=== PATIENT | male | born 1965 | race Caucasian/White ===

== ENCOUNTER 2018-01-04 09:53 | Emergency (ER) | payer BC ==
[2018-01-04 12:23] VITALS: BP 151/101
--- NOTE | 2018-01-04 12:35 | UC ---
Hip/Pelvis Pain - HPI Summary HPI Summary: 2 DAYS AGO PATIENT WAS PERFORMING BACK SQUATS WHEN HE FELT SOME LEFT HIP AND GROIN DISCOMFORT. IT WAS MILD SO HE CONTINUED TO WORK OUT. SHORTLY AFTER FINISHING HIS WORK OUT THE LEFT HIP PAIN INCREASED. RADIATES DOWN TO ABOUT HIS KNEE. HAS BEEN USING OTC ANALGESICS AND ICE WITHOUT MUCH IMPROVEMENT. LAST NIGHT WAS UNABLE TO SLEEP DUE TO THE DISCOMFORT. DENIES NUMBNESS/TINGLING IN THE FOOT. - History Of Current Complaint Chief Complaint: UCLowerExtremity Stated Complaint: HIP, L KNEE PAIN Time Seen by Provider: 01/04/18 12:00 Hx Obtained From: Patient Onset/Duration: Sudden Onset, Lasting Days, Still Present Timing: Constant Severity Initially: Moderate Severity Currently: Moderate Pain Intensity: 7 Pain Scale Used: 0-10 Numeric Character Of Pain: Sharp, Aching Aggravating Factor(s): Movement Alleviating Factor(s): Rest Associated Signs And Symptoms: Negative: Swelling, Redness, Bruising, Weakness, Abdominal Pain, Knee Pain - Allergies/Home Medications Allergies/Adverse Reactions: Allergies Allergy/AdvReac Type Severity Reaction Status Date / Time lactose Allergy GI Upset Verified 01/04/18 10:26 Home Medications: Home Medications Atorvastatin* [Lipitor 10 MG*] 10 mg PO 1700 01/04/18 [History Confirmed ] Ibuprofen 400 mg PO 01/04/18 [History] PMH/Surg Hx/FS Hx/Imm Hx Endocrine History: Dyslipidemia - Surgical History Surgical History: Yes Surgery Procedure, Year, and Place: hernia repair - Family History Known Family History: Positive: Hypertension - Social History Alcohol Use: Weekly Alcohol Amount: 1-3 PER WEEK Substance Use Type: None Smoking Status (MU): Former Smoker Type: Cigarettes Amount Used/How Often: PACK A DAY Have You Smoked in the Last Year: No When Did the Patient Quit Smoking/Using Tobacco: 2003 Review of Systems Constitutional: Negative Skin: Negative Respiratory: Negative Cardiovascular: Negative Gastrointestinal: Negative Musculoskeletal: Arthralgia, Decreased ROM, Myalgia All Other Systems Reviewed And Are Negative: Yes Physical Exam Triage Information Reviewed: Yes Appearance: Well-Appearing, Well-Nourished, Pain Distress - MODERATE Vital Signs: Initial Vital Signs Temp 98.7 F 01/04/18 10:19 Pulse 79 01/04/18 10:19 Resp 18 01/04/18 10:19 BP 134/83 11/07/18 10:19 Pulse Ox 99 01/04/18 10:19 Vital Signs Reviewed: Yes Eyes: Positive: Conjunctiva Clear ENT: Positive: Hearing grossly normal Neck: Positive: Supple Respiratory: Positive: No respiratory distress, No accessory muscle use Cardiovascular: Positive: Pulses Normal Abdomen Description: Positive: Soft Musculoskeletal: Positive: No Edema, ROM Limited @ - LEFT HIP, Other: - TTP LEFT GREATER TROCHANTER, LEFT GROIN AND LEFT BUTTOCK. NEG REE Neurological: Positive: Alert Psychological: Positive: Age Appropriate Behavior Skin: Negative: rashes Hip Injury Course/Dx - Differential Dx/Diagnosis Provider Diagnoses: 1. LEFT TROCHANTERIC BURSITIS. 2. LEFT GROIN STRAIN Discharge - Sign-Out/Discharge Documenting (check all that apply): Patient Departure All imaging exams completed and their final reports reviewed: No Studies - Discharge Plan Condition: Stable Disposition: HOME Prescriptions: Cyclobenzaprine TAB* [Flexeril TAB*] 10 mg PO BID PRN #30 tab PRN Reason: Pain HYDROcodone/ACETAMIN 5-325 MG* [[place] 5-325 TAB*] 1 tab PO Q6H PRN #10 tab MDD 4 PRN Reason: Pain Naproxen [Naproxen EC] 500 mg PO BID PRN #30 tab PRN Reason: Pain predniSONE TAB* [Deltasone 20 MG TAB*] 40 mg PO DAILY #10 tab Patient Education Materials: Hip Bursitis (ED), Groin Strain (ED) Referrals: Irma Mccullough MD [Medical Doctor] - 2 Weeks Mario SANDERSON,Dustin Purcell [Primary Care Provider] - If Needed Additional Instructions: YOUR PRESENTATION IS CONSISTENT WITH A BURSITIS/GROIN STRAIN/MUSCLE STRAIN. THIS LIKELY OCCURRED DURING YOUR EXERCISE ROUTINE. REST, STRETCH, ANTI- INFLAMMATORIES FOR DISCOMFORT. PREDNISONE MAY ALSO HELP WITH INFLAMMATION. IF YOU FEEL THIS PARTICULAR MEDICATION IS NOT HELPING YOU MAY STOP IT AT ANY TIME. MUSCLE RELAXER BEFORE BED. HYDROCODONE FOR BREAKTHROUGH PAIN. BE AWARE THAT BOTH FLEXERIL AND HYDROCODONE CAN MAKE YOU SLEEPY SO TRY NOT TO TAKE THEM SIMULTANEOUSLY. FOLLOW-UP WITH [facility] IF YOU'RE NOT IMPROVING OVER THE NEXT WEEK OR SO. - Billing Disposition and Condition Condition: STABLE Disposition: Home
== END 2018-01-04 12:27 | disposition home or self-care (01) ==
LOC: UCEAST 09:53
DX: M70.62 Trochanteric bursitis, left hip (principal); S39.011A Strain of muscle, fascia and tendon of abdomen, initial encounter; X58.XXXA Exposure to other specified factors, initial encounter; Y93.B9 Activity, other involving muscle strengthening exercises; Y92.9 Unspecified place or not applicable; E78.5 Hyperlipidemia, unspecified; Z87.891 Personal history of nicotine dependence
CPT/HCPCS: 99212; G0463